=== PATIENT | male | born 1975 | race Two or more races ===

== ENCOUNTER 2019-12-17 15:58 | Emergency (ER) | payer OTHER ==
[~2019-12-17] VITALS: Ht 185.4 cm; Wt 103.0 kg
[2019-12-17 16:13] VITALS: BP 133/90
--- NOTE | 2019-12-17 16:21 | NUR ---
SERINA SORIANO AT BEDSIDE
[2019-12-17] MEDS ORDERED: DEXAMETHASONE SOD PHOSPHATE 10 MG/ML VIAL ONE (16:42)
[2019-12-17] MEDS ORDERED: KETOROLAC TROMETHAMINE INJ 30 MG/ML VIAL ONE (16:42)
[2019-12-17] MEDS: DEXAMETHASONE SOD PHOSPHATE 4 MG/ML VIAL IM ONE (16:53)
[2019-12-17] MEDS: KETOROLAC TROMETHAMINE INJ 60 MG/2 ML VIAL IM ONE (16:53)
== END 2019-12-17 16:55 | disposition home or self-care (01) ==
LOC: ER 16:06
DX: M51.36 Other intervertebral disc degeneration, lumbar region (principal); M54.5 Low back pain
CPT/HCPCS: 96372 ×2; 99284; J1100; J1885